=== PATIENT | male | born 2000 | race Caucasian/White ===

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

== ENCOUNTER 2020-07-26 06:23 | Outpatient (CLI) | payer OTHER | END 2020-07-26 06:24 | disposition EMS.NT | LOC: EMS 06:23 | DX: F41.9 Anxiety disorder, unspecified (principal) ==

== ENCOUNTER 2021-05-11 20:33 | Outpatient (CLI) | payer SELFPAY | END 2021-05-11 20:34 | disposition EMS.NT | LOC: EMS 20:33 | DX: F22 Delusional disorders (principal) ==

== ENCOUNTER 2021-07-23 21:29 | Outpatient (CLI) | payer SELFPAY | END 2021-07-23 21:30 | disposition EMS.NT | LOC: EMS 21:29 | DX: R11.0 Nausea (principal) ==

== ENCOUNTER 2021-11-02 21:59 | Outpatient (CLI) | payer SELFPAY | END 2021-11-02 22:00 | disposition EMS.NT | LOC: EMS 21:59 | DX: R51.9 Headache, unspecified (principal); R11.0 Nausea ==

== ENCOUNTER 2021-12-08 02:59 | Outpatient (CLI) | payer SELFPAY | END 2021-12-08 03:00 | disposition EMS.NT | LOC: EMS 02:59 | DX: F41.9 Anxiety disorder, unspecified (principal); F17.220 Nicotine dependence, chewing tobacco, uncomplicated ==